=== PATIENT | female | born 1990 | race Caucasian/White ===

== ENCOUNTER 2018-03-26 19:41 | Emergency (ER) | payer MEDICAID ==
[~2018-03-26] VITALS: Ht 152.4 cm; Wt 57.9 kg
[2018-03-26 20:35] VITALS: BP 92/53
== END 2018-03-26 20:38 | disposition home or self-care (01) ==
LOC: ED 20:29
DX: O21.9 Vomiting of pregnancy, unspecified (principal); O99.712 Diseases of the skin and subcutaneous tissue complicating pregnancy, second trimester; F17.200 Nicotine dependence, unspecified, uncomplicated; Z3A.16 16 weeks gestation of pregnancy; Z90.89 Acquired absence of other organs
CPT/HCPCS: 99283

== ENCOUNTER 2018-08-26 15:34 | Outpatient (CLI) | payer MEDICAID ==
[~2018-08-26] VITALS: Ht 152.4 cm; Wt 77.3 kg
[2018-08-26] MEDS ORDERED: ZOLPIDEM 5MG TABLET ONE (17:37)
[2018-08-26] MEDS ORDERED: ZOLPIDEM 5MG TABLET PO ONE (18:00)
== END 2018-08-26 18:30 | disposition home or self-care (01) ==
LOC: LDOP 15:34
PROVIDERS: ATTEND Obstetrics & Gynecology
DX: O26.893 Other specified pregnancy related conditions, third trimester (principal); R10.9 Unspecified abdominal pain; Z3A.39 39 weeks gestation of pregnancy
CPT/HCPCS: 59025; 89060; 99211; G0463; Q0114

== ENCOUNTER 2019-08-12 13:14 | Emergency (ER) | payer MEDICAID ==
[~2019-08-12] VITALS: Ht 149.9 cm; Wt 56.9 kg
[2019-08-12 13:16] VITALS: BP 103/51
[2019-08-12] MEDS ORDERED: PHENAZOPYRIDINE 200 MG TABLET PO ONE (14:00)
--- NOTE | 2019-08-12 14:02 | NUR ---
PT UPRIGHT ON PELVIC GURNEY AWAKE & COMFORTABLE, RESPONDS APPROP TO STAFF, NAD, COMFORT MEASURES PROVIDED, CALL LIGHT WITHIN REACH.
[2019-08-12 14:31] LABS: HCG UR SG 1.015 (1.003-1.030)
[2019-08-12 14:34] LABS: CULTURE INDICATED? YES; MICROSCOPIC INDICATED
--- NOTE | 2019-08-12 15:00 | NUR ---
PT REMAINS UPRIGHT ON GURNEY AWAKE & COMFORTABLE, RESPONDS APPROP TO STAFF, NAD, COMFORT MEASURES PROVIDED, CALL LIGHT WITHIN REACH.
[2019-08-12] MEDS ORDERED: PHENAZOPYRIDINE 200 MG TABLET ONE (15:09)
[2019-08-12] MEDS ORDERED: CEFTRIAXONE 1,000 MG ONE (15:14)
--- NOTE | 2019-08-12 15:24 | NUR ---
REPORT GIVEN TO
--- NOTE | 2019-08-12 15:26 | NUR ---
ASSUMED CARE AT THIS TIME.
[2019-08-12] MEDS ORDERED: CEFTRIAXONE 1,000 MG IM ONE (15:30)
--- NOTE | 2019-08-12 15:35 | NUR ---
PROVIDER INFORMED THAT PT IS VERY EMOTIONAL AT THIS TIME IN ROOM CRYING THAT HER MARRIAGE IN ON THE LINE. PT INFORMED THAT PROVIDER WILL COME TO TALK TO HER. PT INFORMED THAT RESULTS FOR THE OTHER TESTING THAT WAS DONE IS NOT RESULTED YET.
--- NOTE | 2019-08-12 15:41 | NUR ---
PROVIDER TO BEDSIDE.
[2019-08-12 15:42] LABS: CLUE CELLS PRESENT (NONE SEEN); WET PREP WBCS MODERATE (FEW)
[2019-08-12] MEDS ORDERED: metroNIDAZOLE 500 MG TABLET ONE (15:53)
--- NOTE | 2019-08-12 15:58 | NUR ---
Patient/Caregiver given discharge instructions and they have confirmed that they understand the instructions. Patient ambulatory with steady gait. PT MEDICATED PER EMAR.
[2019-08-12] MEDS ORDERED: metroNIDAZOLE 500 MG TABLET PO ONE (16:00)
== END 2019-08-12 16:00 | disposition home or self-care (01) ==
LOC: ED 14:51
DX: N30.00 Acute cystitis without hematuria (principal); N76.0 Acute vaginitis
CPT/HCPCS: 81001; 81025; 87077; 87086; 87186; 87210; 87491; 87591; 87808; 96372; 99283; J0696

== ENCOUNTER 2019-12-11 18:31 | Emergency (ER) | payer MEDICAID ==
[~2019-12-11] VITALS: Ht 149.9 cm; Wt 54.3 kg
[2019-12-11 18:36] VITALS: BP 115/74
--- NOTE | 2019-12-11 19:18 | NUR ---
[id number]
--- NOTE | 2019-12-11 19:43 | NUR ---
NILX2
--- NOTE | 2019-12-11 20:05 | NUR ---
NOT IN LOBBY
== END 2019-12-11 20:52 | disposition left against medical advice (07) ==
LOC: ED 20:45
DX: R10.32 Left lower quadrant pain (principal); Z53.21 Procedure and treatment not carried out due to patient leaving prior to being seen by health care provider

== ENCOUNTER 2020-09-17 09:19 | Emergency (ER) | payer MEDICAID ==
[~2020-09-17] VITALS: Ht 149.9 cm; Wt 62.5 kg
--- NOTE | 2020-09-17 09:41 | NUR ---
assumed carte of pt. Domenico ALEXIS has been to bedside for COVID swab
--- NOTE | 2020-09-17 09:50 | NUR ---
pt here c/o productive cough and a bump that she noticed on the back of her head a few days ago. pt denies injury. no loss or change of vision. pt reports that she is concerned that she felt a lump on the back of her head because she has a hx of concussion as a child. denies VARGAS. no wound noted. no bump noted on palpation pt in no resp distress. reports that she is a daily smoker. pt reports that she has had no recent sick contacts siting up on gurney in position of comfort on her cell phone. no family at bedside
--- NOTE | 2020-09-17 10:28 | NUR ---
no changes. pt has bene updated on POC chart up for MD recheck
[2020-09-17 11:00] VITALS: BP 110/50
== END 2020-09-17 11:03 | disposition home or self-care (01) ==
LOC: ED 10:10
DX: J06.9 Acute upper respiratory infection, unspecified (principal); Z20.822 Contact with and (suspected) exposure to COVID-19; R94.31 Abnormal electrocardiogram [ECG] [EKG]
CPT/HCPCS: 71045; 87635; 93005; 99285